=== PATIENT | female | born 1995 | race Caucasian/White ===

== ENCOUNTER 2018-03-06 11:59 | Emergency (ER) | payer MEDICAID, OTHER ==
[~2018-03-06] VITALS: Ht 170.2 cm; Wt 62.0 kg
[~2018-03-06 11:59] MED LIST: CEPH500C3 PO; HYDRO25 PO; PRIL20CA PO; TRAM50 PO; ZOFR4TAB3 SL
[2018-03-06 12:08] VITALS: BP 172/94; PULSE 71; RESP 16; TEMP 97.8; O2SAT 99
--- NOTE | 2018-03-06 12:39 | PD ---
HPI Chief Complaint: Laceration/Skin Injury Time Seen by Provider: 12:29 Travel History International Travel<30 days: No Contact w/Intl Traveler<30days: No Traveled to known affect area: No History of Present Illness HPI 23-year-old female presents to the emergency department for evaluation of lacerations to her right hand. Patient states that she punched a window this morning, breaking the window causing lacerations to her hand. Patient has no chronic medical problems and takes no prescribed medications. She states her tetanus immunization is not up-to-date. Patient rates the pain 8/10, to the right hand, aching and throbbing, without radiation. Patient denies any chance of . She denies any loss of range of motion of any the digits of the right hand. Mild severity. PFSH Past Medical History Anxiety: Yes Diminished Hearing: No Gastrointestinal Disorders: Yes GERD: Yes Musculoskeletal: Yes (SCOLIOSIS) Reproductive: No Immunizations Current: Yes Tetanus Vaccination: Unknown Influenza Vaccination: No ?: Not LMP: 02/09/18 : 0 Past Surgical History Other Surgery: No Social History Alcohol Use: No Tobacco Use: Yes (1/2 PPD) Substance Use: No Allergies-Medications (Allergen,Severity, Reaction): Coded Allergies: ketorolac (Unverified Allergy, Severe, HIVES, 03/06/18) Reported Meds & Prescriptions Reported Meds & Active Scripts Active Review of Systems Except as stated in HPI: all other systems reviewed are Neg Physical Exam Narrative GENERAL: Well-nourished, well-developed female patient, ambulatory. Afebrile SKIN: Focused skin assessment warm/dry. Patient has multiple lacerations over the right hand, largest being a 4 cm laceration to the right volar medial hand. HEAD: Normocephalic. EYES: No scleral icterus. No injection or drainage. NECK: Supple, trachea midline. No JVD or lymphadenopathy. CARDIOVASCULAR: Regular rate and rhythm without murmurs, gallops, or rubs. RESPIRATORY: Breath sounds equal bilaterally. No accessory muscle use. Lung sounds are clear to auscultation. GASTROINTESTINAL: Abdomen soft, non-tender, nondistended. MUSCULOSKELETAL: No cyanosis, or edema. Patient has 5/5 strength in all digits of the right hand. She can fully flex and extend all digits of the right hand. BACK: Nontender without obvious deformity. No CVA tenderness. Data Data Last Documented VS Vital Signs Date Time Temp Pulse Resp B/P (MAP) Pulse Ox O2 Delivery O2 Flow Rate FiO2 03/06/18 12:08 97.8 71 16 172/94 (120) 99 Orders Orders Hand, Complete ([id number]) (03/06/18 ) Acetamin-Hydrocod 325-5 Mg ([place] 5-325 (03/06/18 12:45) Tetanus/Diphtheria Tox Adult (Tetanus/Di (03/06/18 12:45) Lidocaine 1% Inj (Xylocaine 1% Inj) (03/06/18 12:45) MDM Medical Decision Making Medical Screen Exam Complete: Yes Emergency Medical Condition: Yes Medical Record Reviewed: Yes Interpretation(s) Last Impressions Hand X-Ray 03/06/18 0000 Signed Impressions: CONCLUSION: Negative examination Differential Diagnosis Laceration versus foreign body versus tendon laceration Narrative Course 23-year-old female presents to the emergency department for evaluation of lacerations to her right hand after she punched a window. Tetanus immunization is updated. Patient is given [place] 5/325 mg p.o. for pain. X-ray of the right hand is ordered and pending. Patient gives verbal consent for laceration repair. X-ray of the right hand is negative. Lacerations are repaired. Patient was given Toradol, but states she can take ibuprofen without issue. Patient will be discharged prescription for ibuprofen and Keflex. She is instructed on proper wound care. The patient was discharged in stable condition with instructions, including return instructions and follow up instructions. Procedures Procedure Narrative LACERATION LOCATION: Right dorsal hand LENGTH: 1 cm NUMBER OF STITCHES/RICK: 2 simple interrupted suture REPAIR: The area of the laceration was prepped with Betadine and sterilely draped. The laceration was infiltrated with 1% lidocaine. The wound was copiously irrigated and explored without evidence of foreign body, tendon injury or neurovascular injury. The wound was closed using 4-0 Prolene. This was a single layer repair. A sterile dressing was applied. The patient was advised to keep the dressing clean and dry. Patient tolerated the procedure well. LACERATION LOCATION: Right dorsal fifth digit LENGTH: 1 cm NUMBER OF STITCHES/RICK: 2 simple interrupted suture REPAIR: The area of the laceration was prepped with Betadine and sterilely draped. The laceration was infiltrated with 1% lidocaine. The wound was copiously irrigated and explored without evidence of foreign body, tendon injury or neurovascular injury. The wound was closed using 4-0 Prolene. This was a single layer repair. A sterile dressing was applied. The patient was advised to keep the dressing clean and dry. Patient tolerated the procedure well. LACERATION LOCATION: Right dorsal second digit LENGTH: 2 cm flap laceration NUMBER OF STITCHES/RICK: 3 simple interrupted sutures, one horizontal mattress suture REPAIR: The area of the laceration was prepped with Betadine and sterilely draped. The laceration was infiltrated with 1% lidocaine. The wound was copiously irrigated and explored without evidence of foreign body, tendon injury or neurovascular injury. The wound was closed using 4-0 Prolene. This was a single layer repair. A sterile dressing was applied. The patient was advised to keep the dressing clean and dry. Patient tolerated the procedure well. LACERATION LOCATION: Right volar medial hand LENGTH: 1 cm NUMBER OF STITCHES/RICK: 1 simple interrupted suture REPAIR: The area of the laceration was prepped with Betadine and sterilely draped. The laceration was infiltrated with 1% lidocaine. The wound was copiously irrigated and explored without evidence of foreign body, tendon injury or neurovascular injury. The wound was closed using 4-0 Prolene. This was a single layer repair. A sterile dressing was applied. The patient was advised to keep the dressing clean and dry. Patient tolerated the procedure well. LACERATION LOCATION: Right volar lateral hip LENGTH: 4 cm NUMBER OF STITCHES/RICK: 5 simple interrupted suture REPAIR: The area of the laceration was prepped with Betadine and sterilely draped. The laceration was infiltrated with 1% lidocaine. The wound was copiously irrigated and explored without evidence of foreign body, tendon injury or neurovascular injury. The wound was closed using 4-0 Prolene. This was a single layer repair. A sterile dressing was applied. The patient was advised to keep the dressing clean and dry. Patient tolerated the procedure well. LACERATION LOCATION: Right volar first digit LENGTH: 1 cm NUMBER OF STITCHES/RICK: 1 simple interrupted suture REPAIR: The area of the laceration was prepped with Betadine and sterilely draped. The laceration was infiltrated with 1% lidocaine. The wound was copiously irrigated and explored without evidence of foreign body, tendon injury or neurovascular injury. The wound was closed using 4-0 Prolene. This was a single layer repair. A sterile dressing was applied. The patient was advised to keep the dressing clean and dry. Patient tolerated the procedure well. Diagnosis Primary Impression: Laceration of multiple sites of hand and fingers Qualified Codes: S61.411A - Laceration without foreign body of right hand, initial encounter; S61.219A - Laceration without foreign body of unspecified finger without damage to nail, initial encounter Referrals: Primary Care Physician call for appointment Patient Instructions: Care For Your Stitches (ED), General Instructions, Laceration (ED) Additional Instructions: Clean lacerations twice daily with soap and water and apply [id number] antibiotic ointment. Keep clean and dry. No swimming or hot tubs until healed. Take antibiotic, Keflex, as directed until gone. Ibuprofen as directed as needed with food for pain. Suture removal in 7-10 days. You may help with your primary care physician return to the emergency department for this. Return to the emergency department for any acute worsening of symptoms. Med/Other Pt SpecificInfo: Prescription(s) given Scripts Cephalexin (Keflex) 500 Mg Capsule 500 MG PO Q8H for Infection for 7 Days, #21 CAP 0 Refills Prov: Ashanti Watson 03/06/18 Ibuprofen (Ibuprofen) 600 Mg Tab 600 MG PO TID Y for PAIN SCALE 1 TO 10, #21 TAB 0 Refills Prov: Ashanti Watson 03/06/18 Disposition: 01 DISCHARGE HOME Condition: Stable Ashanti Watson March 06, 2018 12:39
[2018-03-06] MEDS ORDERED: ACETAMINOPHEN/HYDROcodone 325 MG/5 MG TAB PO ONE (12:45)
[2018-03-06] MEDS ORDERED: LIDOCAINE HCL 1% 20 ML VIAL INFIL ONE (12:45)
[2018-03-06] MEDS ORDERED: TETANUS/DIPHTHERIA TOXOID ADULT 0.5 ML VIAL IM ONE (12:45)
--- NOTE | 2018-03-06 13:54 | RADRPT ---
EXAM DATE: 03/06/2018 1:44 PM EDT AGE/SEX: 23 years / Female INDICATIONS: Hit window with hand, has multiple lacerations to fingers and hand, marker on largest l aceration CLINICAL DATA: This is the patient's initial encounter. Patient reports that signs and symptoms have been present for 1 day and indicates a pain score of 8/10. MEDICAL/SURGICAL HISTORY: None. None. COMPARISON: None . FINDINGS: Bony structures are intact and in normal alignment. Osseous density is normal. Soft tissues are unre markable. No radiopaque foreign bodies seen. CONCLUSION: Negative examination Electronically signed by: Seb Wick MD 03/06/2018 1:53 PM EDT
[2018-03-06] MEDS ORDERED: CEPH-460 PO (14:57)
[2018-03-06] MEDS ORDERED: IBUP-232 PO (14:57)
== END 2018-03-06 15:09 | disposition home or self-care (01) ==
LOC: PHED 11:59 → PHEFT 15:09
DX: S61.411A Laceration without foreign body of right hand, initial encounter (principal); S61.011A Laceration without foreign body of right thumb without damage to nail, initial encounter; S61.210A Laceration without foreign body of right index finger without damage to nail, initial encounter; S61.216A Laceration without foreign body of right little finger without damage to nail, initial encounter; W25.XXXA Contact with sharp glass, initial encounter; F41.9 Anxiety disorder, unspecified; K21.9 Gastro-esophageal reflux disease without esophagitis; F17.200 Nicotine dependence, unspecified, uncomplicated; Z23 Encounter for immunization
CPT/HCPCS: 12004; 73130; 90471; 90714

== ENCOUNTER 2018-03-13 11:59 | Emergency (ER) | payer SELFPAY ==
[~2018-03-13 11:59] MED LIST changes: +CEPH-460 PO; -CEPH500C3 PO; -HYDRO25 PO; +IBUP-232 PO; -PRIL20CA PO; -TRAM50 PO; -ZOFR4TAB3 SL
[2018-03-13 12:05] VITALS: BP 152/74; PULSE 71; RESP 20; TEMP 97.8; O2SAT 100
--- NOTE | 2018-03-13 12:35 | PD ---
HPI Chief Complaint: Wound/Suture/Staple Re-Check Time Seen by Provider: 12:24 Travel History International Travel<30 days: No Contact w/Intl Traveler<30days: No Traveled to known affect area: No History of Present Illness HPI 23-year-old female presents emergency department for evaluation of lacerations to the right hand that was repaired last Thursday. Says that there is minimal pain in the areas appear to be healing. She denies fevers or chills. She denies significant pain, numbness or tingling to the area. She is unsure if the wounds are ready for the suture removal but decided to come in today as advised. PFSH Past Medical History Autoimmune Disease: No Anxiety: Yes Cardiovascular Problems: No Diminished Hearing: No Gastrointestinal Disorders: Yes GERD: Yes Genitourinary: No Musculoskeletal: Yes (SCOLIOSIS) Neurologic: No Psychiatric: No Reproductive: No Respiratory: No Immunizations Current: Yes Influenza Vaccination: No ?: Unknown LMP: MONTH AGO : 0 Past Surgical History Other Surgery: No Social History Alcohol Use: No Tobacco Use: Yes (/2 PPD) Substance Use: No Allergies-Medications (Allergen,Severity, Reaction): Coded Allergies: ketorolac (Unverified Allergy, Severe, HIVES, 03/13/18) Reported Meds & Prescriptions Reported Meds & Active Scripts Active Keflex (Cephalexin) 500 Mg Capsule 500 Mg PO Q8H 7 Days Ibuprofen 600 Mg Tab 600 Mg PO TID PRN Review of Systems Except as stated in HPI: all other systems reviewed are Neg Physical Exam Narrative GENERAL: Well-nourished, well-developed patient, in NAD SKIN: Focused skin assessment warm/dry. No rashes or lesions. Right hand-multiple repaired lacerations in place, slight dehiscence of the thenar laceration and finger lacerations. HEAD: Normocephalic. Atraumatic. EYES: No scleral icterus. No injection or drainage. THROAT: No pharyngeal injection, exudates, or tonsillar hypertrophy. Airway is patent. NECK: Supple, trachea midline. No JVD or lymphadenopathy. No meningismus. MUSCULOSKELETAL: No cyanosis, or edema. BACK: Nontender without obvious deformity. No CVA tenderness. Data Data Last Documented VS Vital Signs Date Time Temp Pulse Resp B/P (MAP) Pulse Ox O2 Delivery O2 Flow Rate FiO2 03/13/18 12:05 97.8 71 20 152/74 (100) 100 [facility] Medical Decision Making Medical Screen Exam Complete: Yes Emergency Medical Condition: No Differential Diagnosis Right hand wound check, laceration, cellulitis Narrative Course 23-year-old female presents emergency department for evaluation of lacerations to the right hand that were repaired last Thursday. Says that there is minimal pain and the areas appear to be healing. She denies fevers or chills. She denies significant pain, numbness or tingling to the area. She is unsure if the wounds are ready for the suture removal but decided to come in today as advised. Vital signs are stable. The right hand appears to be healing however, there is some dehiscence present in the wound. I do not believe that suture removal is warranted today. There is no evidence of developing cellulitis. It appears that the wounds are healing but again are not ready for suture removal. Patient be discharged advised follow-up in 3 days for suture removal. Advised to return if her symptoms persist or worsen. Advised to return for signs or symptoms of cellulitis. A medical screening exam was performed: At the time of evaluation the presenting medical condition was determined not to be of an emergent nature. The patient was given the option of receiving additional care, but declined. Patient was given options for additional community resources from which to obtain care. The Patient Has Been advised to seek medical attention for their presenting complaint. The patient has been advised to return to the ER at any time if an emergent condition develops. Diagnosis Primary Impression: Visit for wound check Referrals: Hand Surgeon Primary Care Physician Disposition: 01 DISCHARGE HOME Condition: Stable Nikkie Solis Mar 13, 2018 12:35
== END 2018-03-13 12:36 | disposition home or self-care (01) ==
LOC: PHEFT 11:59
DX: S61.411D Laceration without foreign body of right hand, subsequent encounter (principal); F41.9 Anxiety disorder, unspecified; K21.9 Gastro-esophageal reflux disease without esophagitis; M41.9 Scoliosis, unspecified; F17.200 Nicotine dependence, unspecified, uncomplicated; X58.XXXD Exposure to other specified factors, subsequent encounter
CPT/HCPCS: 99281